=== PATIENT | male | born 1990 | race Two or more races ===

== ENCOUNTER 2017-07-14 15:32 | Day surgery (SDC) | payer OTHER ==
[2017-07-14] MEDS ORDERED: LIDOCAINE 1% (MPF) 30 ML INJ (18:00)
[2017-07-14] MEDS ORDERED: BUPIVACAINE 0.5% (SDV) 30 ML INJ (18:01)
[2017-07-14] MEDS ORDERED: CEFAZOLIN 1 GM INJ (18:03)
[2017-07-14] MEDS ORDERED: GLYCOPYRROLATE 0.4 MG INJ (18:03)
[2017-07-14] MEDS ORDERED: NEOSTIGMINE 3 MG/3 ML SYRINGE (18:03)
[2017-07-14] MEDS ORDERED: ROCURONIUM 50 MG INJ (18:03)
[2017-07-14] MEDS ORDERED: PROPOFOL 20 ML (18:03)
[2017-07-14] MEDS ORDERED: FENTAnyl 50 MCG/ML VIAL (18:04)
[2017-07-14] MEDS ORDERED: DEXAMETHASONE 4 MG/ML 1 ML INJ (18:04)
[2017-07-14] MEDS ORDERED: MIDAZOLAM 1 MG/ML 2 ML INJ (18:04)
[2017-07-14] MEDS ORDERED: ONDANSETRON 4 MG INJ (18:04)
[2017-07-14] MEDS ORDERED: hydrALAzine 20 MG INJ IV (19:00)
[2017-07-14] MEDS ORDERED: TRIMETHOBENZAMIDE 100 MG/ML VIAL IM (19:00)
[2017-07-14] MEDS ORDERED: ALBUTEROL 0.083% (NEB) 2.5 MG/3 ML AMP HHN (19:00)
[2017-07-14] MEDS ORDERED: EPHEDrine SULFATE 50 MG/5 ML SYG IV (19:00)
[2017-07-14] MEDS ORDERED: LABETALOL HCL 20MG INJ IV (19:00)
[2017-07-14] MEDS ORDERED: OXYCODONE/ACETAMINOPHEN (5/325) TAB PO ×2 (19:00)
[2017-07-14] MEDS ORDERED: MEPERIDINE 25 MG INJ IV (19:00)
[2017-07-14] MEDS ORDERED: FENTAnyl 50 MCG/ML VIAL IV ×3 (19:00)
[2017-07-14] MEDS ORDERED: MIDAZOLAM 1 MG/ML 2 ML INJ IV (19:00)
[2017-07-14] MEDS ORDERED: HYDROmorphONE (0.2 MG/ML) 10ML SYG IV ×3 (19:00)
[2017-07-14] MEDS ORDERED: IPRATROPIUM (NEB) 0.5 MG/2.5 ML AMP HHN (19:00)
[2017-07-14] MEDS ORDERED: DIPHENHYDRAMINE 50 MG INJ IV (19:00)
[2017-07-14] MEDS: ONDANSETRON 4 MG INJ IV (19:29)
== END 2017-07-14 20:20 | disposition home or self-care (01) ==
LOC: SDS 15:32
DX: S62.630A Displaced fracture of distal phalanx of right index finger, initial encounter for closed fracture (principal); X58.XXXA Exposure to other specified factors, initial encounter; M20.011 Mallet finger of right finger(s)
CPT/HCPCS: 26746; 73140